=== PATIENT | female | born 1995 | race Caucasian/White ===

== ENCOUNTER 2018-04-07 08:56 | Emergency (ER) | payer BC ==
[2018-04-07] MEDS ORDERED: IV NORMAL SALINE 1,000ML 1,000 ML IV SCH (09:17)
--- NOTE | 2018-04-07 09:35 | PHYS DOC ---
Adult General Chief Complaint Chief Complaint: NAUSEA/VOMITING/DIARRHEA HPI HPI 22-year-old female presents with vomiting every morning for the last 6 days. The episodes started after the patient had an allergic reaction to shellfish. She had profuse vomiting after shellfish ingestion today. Since then, she has nonbilious, nonbloody vomiting around 7:30 in the morning that stopped by 9:30 or so. She feels fatigued during the day but then feels normal by evening time. She has had overall decreased appetite but is able to eat. She is having some difficulty sleeping at night because of back pain that she feels is due to the vomiting. She denies any abdominal pain. She has had intermittent headaches treated with a single dose of ibuprofen. 3 days ago the patient had 1 day of vaginal bleeding that was minor and resolved on its own. This was unusual as her period ended 1 week prior. Patient denies fever or chills. Review of Systems Review of Systems Constitutional: Denies fever or chills [] Eyes: Denies change in visual acuity, redness, or eye pain [] HENT: Denies nasal congestion or sore throat [] Respiratory: Denies cough or shortness of breath [] Cardiovascular: No additional information not addressed in HPI [] GI: Nausea, vomiting. Denies bloody stools or diarrhea [] : Denies dysuria or hematuria [] Musculoskeletal: Back pain at night.[] Integument: Denies rash or skin lesions [] Neurologic: Denies headache, focal weakness or sensory changes [] Endocrine: Denies polyuria or polydipsia [] All other systems were reviewed and found to be within normal limits, except as documented in this note. Current Medications Current Medications Current Medications Medications (Trade) Dose Ordered Sig/Good Start Time Stop Time Status Last Admin Dose Admin Ondansetron HCl (Zofran) 4 mg 1X ONCE 04/07/18 09:30 04/07/18 09:31 UNV Sodium Chloride 1,000 ml @ 1,000 mls/hr Q1H 04/07/18 09:17 04/07/18 10:16 UNV Allergies Allergies Allergies Coded Allergies Type Severity Reaction Last Updated Verified shellfish derived Allergy Severe 04/07/18 Yes Physical Exam Physical Exam Constitutional: Well developed, well nourished, no acute distress, non-toxic appearance. [] HENT: Normocephalic, atraumatic, bilateral external ears normal, oropharynx moist, no oral exudates, nose normal. [] Eyes: PERRLA, EOMI, conjunctiva normal, no discharge. [] Neck: Normal range of motion, no tenderness, supple, no stridor. [] Cardiovascular:Heart rate regular rhythm, no murmur [] Lungs & Thorax: Bilateral breath sounds clear to auscultation [] Abdomen: Bowel sounds normal, soft. Mild LLQ pain. [] Skin: Warm, dry, no erythema, no rash. [] Back: No tenderness, no CVA tenderness. [] Extremities: No tenderness, no cyanosis, no clubbing, ROM intact, no edema. [] Neurologic: Alert and oriented X 3, normal motor function, normal sensory function, no focal deficits noted. [] Psychologic: Affect normal, judgement normal, mood normal. [] EKG EKG [] Radiology/Procedures Radiology/Procedures [] Impressions: Examination: Single frontal view of the abdomen HISTORY: History of abdominal pain, vomiting COMPARISON: None available FINDINGS: The evaluation small bowel is limited due to paucity of gas in the small bowel. Moderate amount of feces and gas noted in the colon. Gas identified in the rectum. IMPRESSION: 1. Nonspecific bowel gas pattern. Electronically signed by: Amador Thapa MD (04/07/2018 10:06 AM) [id number] Course & Med Decision Making Course & Med Decision Making Pertinent Labs and Imaging studies reviewed. (See chart for details) The patient's labs are unremarkable. Her hCG is negative. Urine is trace esterase but moderate epithelials. I will not treat her for UTI. Her KUB does show moderate stool burden. I think the patient may be having some of her symptoms due to constipation. I will advise that she do a bowel cleanout with magnesium citrate at home. [] Dragon Disclaimer Dragon Disclaimer This electronic medical record was generated, in whole or in part, using a voice recognition dictation system. Departure Departure: Referrals: ABEL DASH (PCP) SVETA KUO DO Apr 07, 2018 09:35
[2018-04-07 09:39] LABS: BASO # 0.1 x10^3/uL (0.0-0.2); BASO % 2 % (0-3); EOS # 0.1 x10^3/uL (0.0-0.7); EOS % 2 % (0-3); HEMATOCRIT 40.4 % (36.0-47.0); HEMOGLOBIN 13.7 g/dL (12.0-15.5); LYMPH # 1.2 x10^3/uL (1.0-4.8); LYMPH % 32 % (24-48); MEAN CORPUSCULAR HEMOGLOBIN 31 pg (25-35); MEAN CORPUSCULAR HGB CONC 34 g/dL (31-37); MEAN CORPUSCULAR VOLUME 91 fL (79-100); MONO # 0.5 x10^3/uL (0.0-1.1); MONO % 13 % (0-9); NEUT # 1.9 x10^3uL (1.8-7.7); NEUT % 52 % (31-73); PLATELET COUNT 185 x10^3/uL (140-400); RED BLOOD COUNT 4.43 x10^6/uL (3.50-5.40); RED CELL DISTRIBUTION WIDTH 11.5 % (11.5-14.5); WHITE BLOOD COUNT 3.8 x10^3/uL (4.0-11.0)
[2018-04-07] MEDS ORDERED: ONDANSETRON PF 4 MG/2 ML VIAL. IV ONE (09:45)
[2018-04-07 09:51] LABS: ALBUMIN 3.9 g/dL (3.4-5.0); ALBUMIN/GLOBULIN RATIO 1.3 (1.0-1.7); CALCIUM 8.7 mg/dL (8.5-10.1); CREATININE 0.8 mg/dL (0.6-1.0); GFR 88.9; POTASSIUM 3.9 mmol/L (3.5-5.1); TOTAL BILIRUBIN 0.5 mg/dL (0.2-1.0); TOTAL PROTEIN 6.9 g/dL (6.4-8.2)
--- NOTE | 2018-04-07 10:10 | RAD ---
Examination: Single frontal view of the abdomen HISTORY: History of abdominal pain, vomiting COMPARISON: None available FINDINGS: The evaluation small bowel is limited due to paucity of gas in the small bowel. Moderate amount of feces and gas noted in the colon. Gas identified in the rectum. IMPRESSION: 1. Nonspecific bowel gas pattern. Electronically signed by: Amador Thapa MD (04/07/2018 10:06 AM) [id number]
[2018-04-07 10:15] VITALS: BP 120/71
[2018-04-07 10:18] LABS: CLARITY,URINE CLOUDY; COLOR,URINE YELLOW
[2018-04-07 10:19] LABS: AMORPHOUS SEDIMENT,UR PRESENT /HPF; BACTERIA,URINE MOD /HPF (0-FEW); BILIRUBIN,URINE NEG (NEG); GLUCOSE,URINE NEG (NEG); NITRITE,URINE NEG (NEG); RBC,URINE OCC /HPF (0-2); SQUAMOUS EPITHELIAL CELL,UR MOD /LPF; UROBILINOGEN,URINE 0.2 mg/dL (0.2 mg/dL)
== END 2018-04-07 10:54 | disposition home or self-care (01) ==
LOC: ER 08:56
DX: K59.00 Constipation, unspecified (principal); R11.10 Vomiting, unspecified; Z91.013 Allergy to seafood
CPT/HCPCS: 36415; 74018; 80053; 81001; 81025; 83690; 85025; 87086; 96374; 99285; J2405; 87186; J7030

== ENCOUNTER 2019-01-22 14:29 | Emergency (ER) | payer SELFPAY ==
[~2019-01-22] VITALS: Ht 160 cm; Wt 62.0 kg
[2019-01-22] MEDS ORDERED: methylPREDNISolone SOD SUCC PF 125 MG/2 ML VIAL. IV ONE (15:00)
[2019-01-22] MEDS ORDERED: FAMOTIDINE 20 MG/2 ML VIAL IVP ONE (15:00)
[2019-01-22] MEDS ORDERED: diphenhydrAMINE 50 MG/ML VIAL IVP ONE (15:00)
[2019-01-22] MEDS ORDERED: IV NORMAL SALINE 1,000ML 1,000 ML IV ONE (15:00)
--- NOTE | 2019-01-22 15:07 | PHYS DOC ---
Past History Past Medical History: No Pertinent History Past Surgical History: Other Smoking: Non-smoker Alcohol Use: Occasionally Drug Use: None Adult General Chief Complaint Chief Complaint: ALLERGIC REACTION HPI HPI Patient is a 23-year-old female presents with an allergic reaction. She reports face swelling that started approximately 90 minutes prior to arrival. Patient made sushi which she ate just prior to this. Patient is also having some stomach pain, no vomiting in this same time frame. No diarrhea. She has a history of previous possible allergic reaction to crab several months ago. Patient's partner reports that her face was more swollen than it is now. No home medicine has been taken. Nothing else seems to make this better or worse. Patient denies any difficulty breathing or tongue swelling.[] Review of Systems Review of Systems Constitutional: Denies fever or chills [] Eyes: Denies change in visual acuity, redness, or eye pain [] HENT: Denies nasal congestion or sore throat [] Respiratory: Denies cough or shortness of breath [] Cardiovascular: No additional information not addressed in HPI [] GI: Denies vomiting, bloody stools or diarrhea, see history of present illness [] : Denies dysuria or hematuria [] Musculoskeletal: Denies back pain or joint pain [] Integument: Denies rash or skin lesions, see history of present illness [] Neurologic: Denies headache, focal weakness or sensory changes [] Endocrine: Denies polyuria or polydipsia [] All other systems were reviewed and found to be within normal limits, except as documented in this note. Current Medications Current Medications Current Medications Medications (Trade) Dose Ordered Sig/Good Start Time Stop Time Status Last Admin Dose Admin Diphenhydramine HCl (Benadryl) 50 mg 1X ONCE 01/22/19 15:00 01/22/19 15:01 01/22/19 15:00 50 MG Famotidine (Pepcid Vial) 20 mg 1X ONCE 01/22/19 15:00 01/22/19 15:01 01/22/19 15:00 20 MG Methylprednisolone Sodium Succinate (SOLU-Medrol 125MG VIAL) 125 mg 1X ONCE 01/22/19 15:00 01/22/19 15:01 01/22/19 15:00 125 MG Sodium Chloride 1,000 ml @ 1,000 mls/hr 1X ONCE 5/26/19 15:00 01/22/19 15:59 01/22/19 15:00 1,000 MLS/HR Allergies Allergies Allergies Coded Allergies Type Severity Reaction Last Updated Verified shellfish derived Allergy Severe 04/07/18 Yes Physical Exam Physical Exam Constitutional: Well developed, well nourished, mild discomfort, non-toxic appearance. [] HENT: Normocephalic, atraumatic, bilateral external ears normal, oropharynx moist, no oral exudates, nose normal. [] Eyes: PERRLA, EOMI, conjunctiva normal, no discharge. [] Neck: Normal range of motion, no tenderness, supple, no stridor. [] Cardiovascular:Heart rate regular rhythm, no murmur [] Lungs & Thorax: Bilateral breath sounds clear to auscultation [] Abdomen: Bowel sounds normal, soft, no tenderness, no masses, no pulsatile masses. [] Skin: Warm, dry, no erythema, no rash. [] Back: No tenderness, no CVA tenderness. [] Extremities: No tenderness, no cyanosis, no clubbing, ROM intact, no edema. [] Neurologic: Alert and oriented X 3, normal motor function, normal sensory function, no focal deficits noted. [] Psychologic: Affect normal, judgement normal, mood normal. [] EKG EKG [] Radiology/Procedures Radiology/Procedures [] Course & Med Decision Making Course & Med Decision Making Pertinent Labs and Imaging studies reviewed. (See chart for details) ED course: Patient arrived, was placed in bed, in tolerated exam well. IV access was established and she was given antihistamines, steroids, and IV fluids. She reported feeling much better after these medicines were administered. She was observed for several hours without any recurrence of the abdominal pain where the facial swelling which continue to improve. She was discharged in improved condition. Medical decision making: Patient appears to have an allergic reaction to shellfish. At this time it appears that the histamine cycle has been broken. We'll continue treatment as an outpatient.[] Dragon Disclaimer Dragon Disclaimer This electronic medical record was generated, in whole or in part, using a voice recognition dictation system. Departure Departure: Impression: Primary Impression: Allergic reaction Disposition: HOME, SELF-CARE Condition: IMPROVED Referrals: ABEL DASH (PCP) Follow-up in 2 days Patient Instructions: Food Allergy and Anaphylaxis Additional Instructions: Follow-up with your regular doctor in 2 days. Take your medication as directed. Return to the ER if worsening difficulty breathing or any other concerns. Scripts Epinephrine (Auvi-Q) 0.1 Mg/0.1 Ml Auto.injct 0.3 MG IJ as needed for anaphylaxis, #2 SYR Use if you develop facial swelling, difficulty breathing, or other evidence of a severe allergic reaction Prov: KAUSHAL ORTIZ DO 01/22/19 Prednisone (PREDNISONE) 50 Mg Tablet 1 TAB PO DAILY for INFLAMMATION, #5 TAB Prov: KAUSHAL ORTIZ DO 01/22/19 Famotidine (PEPCID) 20 Mg Tablet 1 TAB PO BID for allergic reaction, #20 TAB 0 Refills Prov: KAUSHAL ORTIZ DO 01/22/19 Hydroxyzine Hcl (HYDROXYZINE HCL) 25 Mg Tablet 1 TAB PO TID for allergic reaction, #30 TAB Prov: KAUSHAL ORTIZ DO 01/22/19 Problem Qualifiers Primary Impression: Allergic reaction Encounter type: initial encounter Qualified Codes: T78.40XA - Allergy, unspecified, initial encounter KAUSHAL ORTIZ DO January 22, 2019 15:07
[2019-01-22 16:31] VITALS: BP 110/75
[2019-01-22] MEDS ORDERED: PRED50TA PO (16:39)
[2019-01-22] MEDS ORDERED: HYDR25TA PO (16:39)
[2019-01-22] MEDS ORDERED: FAMO-63 PO (16:39)
[2019-01-22] MEDS ORDERED: EPIN0.1A IJ (16:39)
== END 2019-01-22 16:46 | disposition home or self-care (01) ==
LOC: ER 14:29
DX: T78.40XA Allergy, unspecified, initial encounter (principal); Z91.013 Allergy to seafood; X58.XXXA Exposure to other specified factors, initial encounter
CPT/HCPCS: 96374; 96375; 99284; J1200; J2930; J3490; J7030

== ENCOUNTER → 2020-05-14 | Outpatient (CLI) | payer BC ==
[~2020-05-14] MED LIST: EPIN0.1A IJ; FAMO-63 PO; HYDR25TA PO; PRED50TA PO
--- NOTE | 2020-05-14 09:29 | RAD ---
Examination: 1. Right knee 3 views. 2. Bilateral elbows, 3 views each INDICATION: Elbow pain, loose joints, and right knee pain with loose joints. Feels like knee dislocates. COMPARISON: No relevant comparisons currently available. FINDINGS: Right knee: AP, lateral and oblique views of the right knee show normal mineralization and alignment with no fracture, aggressive osseous lesions or significant degenerative change. The joint spaces are preserved. There is no evidence of a joint effusion or loose body. Bilateral elbows: AP, lateral and oblique views of the right and left elbows show normal alignment and mineralization with no fracture or aggressive appearing osseous lesions. Joint spaces are preserved. The soft tissues are unremarkable. IMPRESSION: 1. Normal 3 view radiographic exam of the right knee. 2. Normal 3 view radiographic exam of the bilateral elbows. Electronically signed by: Fernanda Riddle MD (05/14/2020 9:26 AM) [id number]
== END | disposition home or self-care (01) ==
LOC: DXRAD 08:22
PROVIDERS: ATTEND Physician Assistant
DX: M25.522 Pain in left elbow (principal); M25.521 Pain in right elbow; M25.561 Pain in right knee
CPT/HCPCS: 73080; 73562